=== PATIENT | female | born 1990 | race Caucasian/White ===

== ENCOUNTER 2019-04-15 07:14 | Emergency (ER) | payer MEDICAID ==
[~2019-04-15] VITALS: Ht 154.9 cm; Wt 46.8 kg
[2019-04-15 08:17] VITALS: BP 120/68
== END 2019-04-15 08:24 | disposition home or self-care (01) ==
LOC: EMS 07:18
DX: S46.912A Strain of unspecified muscle, fascia and tendon at shoulder and upper arm level, left arm, initial encounter (principal); V49.9XXA Car occupant (driver) (passenger) injured in unspecified traffic accident, initial encounter; Y93.89 Activity, other specified; Y92.488 Other paved roadways as the place of occurrence of the external cause; Y99.8 Other external cause status

== ENCOUNTER 2020-04-27 06:28 | Emergency (ER) | payer MEDICAID ==
[~2020-04-27] VITALS: Ht 154.9 cm; Wt 51.8 kg
[2020-04-27 06:35] VITALS: BP 127/89
== END 2020-04-27 08:05 | disposition home or self-care (01) ==
LOC: EMS 06:30
DX: R05 Cough (principal); R50.9 Fever, unspecified; R43.8 Other disturbances of smell and taste; Z20.822 Contact with and (suspected) exposure to COVID-19
CPT/HCPCS: 99283; U0003

== ENCOUNTER 2020-12-28 04:08 | Emergency (ER) | payer MEDICAID ==
[~2020-12-28] VITALS: Ht 154.9 cm; Wt 49.1 kg
[2020-12-28 04:45] VITALS: BP 119/72
== END 2020-12-28 04:51 | disposition home or self-care (01) ==
LOC: EMS 04:10
DX: S00.81XA Abrasion of other part of head, initial encounter (principal); W22.8XXA Striking against or struck by other objects, initial encounter; Y93.89 Activity, other specified; Y92.89 Other specified places as the place of occurrence of the external cause; Y99.8 Other external cause status
CPT/HCPCS: 99281; Z7502